=== PATIENT | male | born 1985 | race African-American/Black ===

== ENCOUNTER 2017-09-18 17:14 | Emergency (ER) | payer SELFPAY ==
[2017-09-18 17:22] VITALS: BP 135/88
--- NOTE | 2017-09-18 17:28 | ER Document Report ---
ED Medical Screen (RME) - General Chief Complaint: Head Injury Stated Complaint: HEAD INJURY Time Seen by Provider: 09/18/17 17:26 Mode of Arrival: Ambulatory Information source: Patient TRAVEL OUTSIDE OF THE [place] IN LAST 30 DAYS: No - HPI Patient complains to provider of: head trauma Onset: Just prior to arrival - pt. states ceiling fan lamp fell from a [place] ceiling and hit him in the head causing a LOC. Feels better now. - Related Data Allergies/Adverse Reactions: No Known Allergies Allergy (Unverified 09/18/17 17:15) Past Medical History - Social History Chew tobacco use (# tins/day): No Frequency of alcohol use: Occasional Drug Abuse: None Renal/ Medical History: Denies: Hx Peritoneal Dialysis Physical Exam - Vital signs Vitals: Temp Pulse Resp BP Pulse Ox 99.0 F 87 16 135/88 H 100 09/18/17 17:21 09/18/17 17:21 09/18/17 17:21 09/18/17 17:21 09/18/17 17:21 Course - Vital Signs Vital signs: Temp Pulse Resp BP Pulse Ox 99.0 F 87 16 135/88 H 100 09/18/17 17:21 09/18/17 17:21 09/18/17 17:21 09/18/17 17:21 09/18/17 17:21
--- NOTE | 2017-09-18 17:49 | RADIOLOGY REPORT (SQ) ---
EXAM DESCRIPTION: CT HEAD WITHOUT COMPLETED DATE/TIME: 09/18/2017 5:39 pm REASON FOR STUDY: head injury COMPARISON: None. TECHNIQUE: Axial images acquired through the brain without intravenous contrast. Images reviewed wi th bone, brain and subdural windows. Images stored on PACS. LIMITATIONS: None. FINDINGS: VENTRICLES: Normal size and contour. CEREBRUM: No masses. No hemorrhage. No midline shift. Normal luis/white matter differentiation. N o evidence for acute infarction. CEREBELLUM: No masses. No hemorrhage. No alteration of density. No evidence for acute infarction. EXTRAAXIAL SPACES: No fluid collections. No masses. ORBITS AND GLOBE: No intra- or extraconal masses. Normal contour of globe without masses. CALVARIUM: No fracture. PARANASAL SINUSES: Mucous retention cyst left maxillary sinus. Otherwise clear. SOFT TISSUES: No mass or hematoma. OTHER: No other significant finding. IMPRESSION: MILD CHRONIC PARANASAL SINUS DISEASE. OTHERWISE UNREMARKABLE NONCONTRAST CT HEAD. COMMENT: WAS EXAM PERFORMED WITHIN 24 HOURS UPON ARRIVAL TO FACILITY? Yes. TECHNICAL DOCUMENTATION: JOB ID: [id number]
== END 2017-09-18 18:35 | disposition home or self-care (01) ==
LOC: ER 17:14
DX: S06.9X9A Unspecified intracranial injury with loss of consciousness of unspecified duration, initial encounter (principal); W20.8XXA Other cause of strike by thrown, projected or falling object, initial encounter
CPT/HCPCS: 70450; 99284

== ENCOUNTER 2017-10-01 00:47 | Emergency (ER) | payer SELFPAY ==
[2017-10-01 00:54] VITALS: BP 131/84
[2017-10-01] MEDS ORDERED: KETOROLAC TROMETHAMINE 10 MG TABLET PO ONE (01:22)
[2017-10-01] MEDS ORDERED: BACLOFEN 20 MG TABLET PO ONE (01:22)
--- NOTE | 2017-10-01 01:28 | ER Document Report ---
ED Headache - General Chief Complaint: Headache Stated Complaint: HEAD PAIN Time Seen by Provider: 10/01/17 01:12 Mode of Arrival: Ambulatory Information source: Patient Notes: 32 years old male who was seen here September 18 for head injury, evaluated with CT of the brain reported to be negative. He claims he is persistently having on and off headache and nightmares and difficulty sleeping and also having pain over the upper back. Says he was given 2 referrals but unable to follow-up due to lack of insurance. He denies any numbness tingling sensation focal weaknesses denies any constitutional symptoms. TRAVEL OUTSIDE OF THE [place] IN LAST 30 DAYS: No - Related Data Allergies/Adverse Reactions: No Known Allergies Allergy (Unverified 09/18/17 17:15) Past Medical History - Social History Smoking Status: Current Every Day Smoker Family History: Reviewed & Not Pertinent Renal/ Medical History: Denies: Hx Peritoneal Dialysis Review of Systems - Review of Systems Notes: REVIEW OF SYSTEMS: CONSTITUTIONAL : Denies fever, chills, or sweats. Denies recent illness. EENT: Denies eye, ear, throat, or mouth pain or symptoms. Denies nasal or sinus congestion or discharge. Denies throat, tongue, or mouth swelling or difficulty swallowing. CARDIOVASCULAR: Denies chest pain. Denies palpitations or racing or irregular heart beat. Denies ankle edema. RESPIRATORY: Denies cough, cold, or chest congestion. Denies shortness of breath, difficulty breathing, or wheezing. GASTROINTESTINAL: Denies abdominal pain or distention. Denies nausea, vomiting , or diarrhea. Denies blood in vomitus, stools, or per rectum. Denies black, tarry stools. Denies constipation. GENITOURINARY: Denies difficulty urinating, painful urination, burning, frequency, blood in urine, or discharge. MUSCULOSKELETAL: Denies back or neck pain or stiffness. Denies joint pain or swelling. SKIN: Denies rash, lesions or sores. HEMATOLOGIC : Denies easy bruising or bleeding. LYMPHATIC: Denies swollen, enlarged glands. NEUROLOGICAL: Denies confusion or altered mental status. Denies passing out or loss of consciousness. Denies dizziness or lightheadedness. Denies headache. Denies weakness or paralysis or loss of use of either side. Denies problems with gait or speech. Denies sensory loss, numbness, or tingling. Denies seizures. PSYCHIATRIC: Denies anxiety or stress. Denies depression, suicidal ideation, or homicidal ideation. ALL OTHER SYSTEMS REVIEWED AND NEGATIVE. Dictation was performed using [employer] voice recognition software PHYSICAL EXAMINATION: GENERAL: Well-appearing, well-nourished and in no acute distress. HEAD: Atraumatic, normocephalic. EYES: Pupils equal round and reactive to light, extraocular movements intact, sclera anicteric, conjunctiva are normal. ENT: Nares patent, oropharynx clear without exudates. Moist mucous membranes. NECK: Normal range of motion, supple without lymphadenopathy LUNGS: Breath sounds clear to auscultation bilaterally and equal. No wheezes rales or rhonchi. HEART: Regular rate and rhythm without murmurs ABDOMEN: Soft, nontender, nondistended abdomen. No guarding, no rebound. No masses appreciated. Musculoskeletal: Normal range of motion, no pitting or edema. No cyanosis. NEUROLOGICAL: Cranial nerves grossly intact. Normal speech, normal gait. Normal sensory, motor exams PSYCH: Normal mood, normal affect. SKIN: Warm, Dry, normal turgor, no rashes or lesions noted. Cardiovascular: No symptoms reported Physical Exam - Vital signs Vitals: Temp Pulse Resp BP Pulse Ox 98 F 67 18 131/84 H 100 10/01/17 00:52 10/01/17 00:52 10/01/17 00:52 10/01/17 00:52 10/01/17 00:52 Course - Re-evaluation Re-evalutation: 10/01/17 01:24 Given Toradol and baclofen - Vital Signs Vital signs: Temp Pulse Resp BP Pulse Ox 98 F 67 18 131/84 H 100 10/01/17 00:52 10/01/17 00:52 10/01/17 00:52 10/01/17 00:52 10/01/17 00:52 Discharge - Discharge Clinical Impression: Headache Qualifiers: Headache type: post-traumatic Headache chronicity pattern: unspecified pattern Intractability: not intractable Qualified Code(s): G44.309 - Post-traumatic headache, unspecified, not intractable Sprain of trapezoid ligament Qualifiers: Encounter type: initial encounter Laterality: unspecified laterality Qualified Code(s): S43.80XA - Sprain of other specified parts of unspecified shoulder girdle, initial encounter Condition: Fair Disposition: HOME, SELF-CARE Instructions: Headache ([facility]) Prescriptions: Trazodone HCl 100 mg PO QHS #30 tablet Baclofen [Baclofen 20 Mg Tablet] 20 mg PO TID #30 tablet Diclofenac Sodium 75 mg PO BID #60 tablet.
[2017-10-01] MEDS ORDERED: KETOROLAC TROMETHAMINE 60 MG/2 ML SDV IM ONE (01:32)
== END 2017-10-01 01:41 | disposition home or self-care (01) ==
LOC: ER 00:47
DX: S43.80XA Sprain of other specified parts of unspecified shoulder girdle, initial encounter (principal); G44.309 Post-traumatic headache, unspecified, not intractable; F17.200 Nicotine dependence, unspecified, uncomplicated; X58.XXXA Exposure to other specified factors, initial encounter
CPT/HCPCS: 99283; 96372; J1885; J3490